=== PATIENT | female | born 1985 | race Two or more races ===

== ENCOUNTER 2020-04-09 09:34 | Outpatient (CLI) | payer OTHER | END 2020-04-09 10:28 | disposition home or self-care (01) | LOC: NST 09:34 | PROVIDERS: ATTEND Obstetrics & Gynecology Maternal & Fetal Medicine | DX: Z34.83 Encounter for supervision of other normal pregnancy, third trimester (principal) ==

== ENCOUNTER 2020-04-16 07:44 | Outpatient (CLI) | payer OTHER | END 2020-04-16 08:35 | disposition home or self-care (01) | LOC: NST 07:44 | PROVIDERS: ATTEND Obstetrics & Gynecology Maternal & Fetal Medicine | DX: Z34.83 Encounter for supervision of other normal pregnancy, third trimester (principal) ==

== ENCOUNTER 2020-04-23 08:31 | Outpatient (CLI) | payer OTHER | END 2020-04-23 08:56 | disposition home or self-care (01) | LOC: NST 08:31 | PROVIDERS: ATTEND Obstetrics & Gynecology Maternal & Fetal Medicine | DX: Z34.83 Encounter for supervision of other normal pregnancy, third trimester (principal) ==

== ENCOUNTER 2020-04-30 08:43 | Outpatient (CLI) | payer OTHER | END 2020-04-30 09:27 | disposition home or self-care (01) | LOC: NST 08:43 | PROVIDERS: ATTEND Obstetrics & Gynecology Maternal & Fetal Medicine | DX: Z34.83 Encounter for supervision of other normal pregnancy, third trimester (principal) ==

== ENCOUNTER 2020-05-07 07:38 | Outpatient (CLI) | payer OTHER | END 2020-05-07 08:49 | disposition home or self-care (01) | LOC: NST 07:38 | PROVIDERS: ATTEND Obstetrics & Gynecology Maternal & Fetal Medicine | DX: Z34.83 Encounter for supervision of other normal pregnancy, third trimester (principal) ==

== ENCOUNTER 2020-05-11 07:43 | Outpatient (CLI) | payer OTHER | END 2020-05-11 08:39 | disposition home or self-care (01) | LOC: NST 07:43 | PROVIDERS: ATTEND Obstetrics & Gynecology Maternal & Fetal Medicine | DX: Z34.83 Encounter for supervision of other normal pregnancy, third trimester (principal) ==

== ENCOUNTER 2020-05-14 09:23 | Outpatient (CLI) | payer OTHER | END 2020-05-14 09:45 | disposition home or self-care (01) | LOC: NST 09:23 | PROVIDERS: ATTEND Obstetrics & Gynecology Maternal & Fetal Medicine | DX: Z34.83 Encounter for supervision of other normal pregnancy, third trimester (principal) ==

== ENCOUNTER 2020-05-18 07:46 | Outpatient (CLI) | payer OTHER | END 2020-05-18 08:02 | disposition home or self-care (01) | LOC: NST 07:46 | PROVIDERS: ATTEND Obstetrics & Gynecology Maternal & Fetal Medicine | DX: Z34.83 Encounter for supervision of other normal pregnancy, third trimester (principal) ==

== ENCOUNTER 2020-05-21 07:51 | Outpatient (CLI) | payer OTHER | END 2020-05-21 08:29 | disposition home or self-care (01) | LOC: NST 07:51 | PROVIDERS: ATTEND Obstetrics & Gynecology Maternal & Fetal Medicine | DX: Z34.83 Encounter for supervision of other normal pregnancy, third trimester (principal) ==

== ENCOUNTER 2020-05-24 07:18 | Outpatient (CLI) | payer OTHER | END 2020-05-24 07:28 | disposition home or self-care (01) | LOC: NST 07:18 | PROVIDERS: ATTEND Obstetrics & Gynecology Maternal & Fetal Medicine | DX: O60.03 Preterm labor without delivery, third trimester (principal); Z3A.35 35 weeks gestation of pregnancy ==

== ENCOUNTER 2020-05-26 07:23 | Outpatient (CLI) | payer OTHER ==
[2020-05-28] MEDS ORDERED: SYNTHROID175 MCG PO (09:57)
[2020-05-28] MEDS ORDERED: PRENATAL PLUS1 EAC1 PO (09:58)
== END 2020-05-26 07:55 | disposition home or self-care (01) ==
LOC: NST 07:23
PROVIDERS: ATTEND Obstetrics & Gynecology Maternal & Fetal Medicine
DX: Z34.83 Encounter for supervision of other normal pregnancy, third trimester (principal)

== ENCOUNTER 2020-05-28 10:19 | Inpatient (IN) | payer OTHER ==
[~2020-05-28] VITALS: Ht 165.1 cm; Wt 2.3 kg
[~2020-05-28 10:19] MED LIST: PRENATAL PLUS1 EAC1 PO; SYNTHROID175 MCG PO
== END 2020-06-01 17:27 | disposition home or self-care (01) | DRG 788 ==
LOC: O/R 10:19 → SURG-SUITE 10:19 → OB/GYN 15:43 → SURG-SUITE 06-01 17:27
PROVIDERS: ADMIT Obstetrics & Gynecology Maternal & Fetal Medicine; ATTEND Obstetrics & Gynecology Maternal & Fetal Medicine
PROC: 4A1HXFZ Monitoring of Products of Conception, Cardiac Rhythm, External Approach (ICD-10-PCS; 2020-05-28)
PROC: 10D00Z1 Extraction of Products of Conception, Low, Open Approach (ICD-10-PCS; principal; 2020-05-28 10:15)
DX: O64.1XX0 Obstructed labor due to breech presentation, not applicable or unspecified (principal); O36.5930 Maternal care for other known or suspected poor fetal growth, third trimester, not applicable or unspecified; Z3A.36 36 weeks gestation of pregnancy; Z37.0 Single live birth; Z20.822 Contact with and (suspected) exposure to COVID-19

== ENCOUNTER 2024-12-22 14:34 | Outpatient (CLI) | payer BC | END 2024-12-22 14:51 | disposition home or self-care (01) | LOC: SONOGRAMA 14:34 | PROVIDERS: ATTEND Pathology Anatomic Pathology | DX: R59.0 Localized enlarged lymph nodes (principal) ==